=== PATIENT | male | born 1945 ===

== ENCOUNTER 2017-04-07 09:17 | Day surgery (SDC) | payer MEDICARE ==
[2017-04-04 12:41] VITALS: BMI 26.6
[2017-04-07] MEDS ORDERED: Gentamicin 160 MG in Sodium Chloride 0.9% 100 ML IVPB ONE (10:30)
[2017-04-07] MEDS ORDERED: Lactated Ringer's 1,000 ML IV ONE (10:55)
[2017-04-07] MEDS ORDERED: cefTRIAXone IV 1 gm in Dextros 50 ML IVPB ONE (10:57)
[2017-04-07] MEDS ORDERED: Midazolam 2 MG/2 ML VIAL ONE (11:01)
[2017-04-07] MEDS ORDERED: Propofol 10 mg/ml Inj (20 ML) ONE (11:01)
[2017-04-07 13:22] VITALS: BP 124/71; PULSE 79; RESP 15; TEMP 97.8; O2SAT 97
--- NOTE | 2017-04-07 15:07 | OP ---
PROCEDURE DATE: PREOPERATIVE DIAGNOSIS: Elevated prostate-specific antigen with high risk 4Kscore, the 4Kscore is 84. The prostate-specific antigen is 9.6. POSTOPERATIVE DIAGNOSIS: Text. PROCEDURES: Prostatic ultrasound, prostatic biopsy, and cystoscopy. SURGEON: Damion Burgos MD DESCRIPTION OF PROCEDURE: While the patient in lithotomy position, genitalia prepped and draped in sterile fashion. The patient is given 160 mg of gentamicin and 1 g Rocephin. Prostatic ultrasound showed the prostate for 48 g. Multiple biopsies taken from the right and multiple from the left. The area cleaned with Betadine and put pressure on it. There was no active bleeding. The prostate probe removed. Gloves changed. Gown changed. The area prepped. Cystoscopy revealed bilateral lobe enlargement causing partial obstruction. No bleeding and the bladder normal. The patient tolerated the procedure well and after removing the scope transferred to recovery room in stable condition. Damion Burgos MD
== END 2017-04-07 13:20 | disposition home or self-care (01) ==
LOC: C.SDS 09:17
PROVIDERS: ATTEND Specialist
DX: C61 Malignant neoplasm of prostate (principal); N40.1 Benign prostatic hyperplasia with lower urinary tract symptoms; N13.8 Other obstructive and reflux uropathy
CPT/HCPCS: 55700; 76872; 88305; 88342; J0696; J1580; J7120